=== PATIENT | male | born 1955 | race Caucasian/White ===

== ENCOUNTER → 2021-09-20 09:54 | Outpatient (CLI) | payer MEDICARE, OTHER, SELFPAY ==
[2021-09-20 20:16] LABS: Alanine Aminotransferase 20 IU/L (<50); Albumin 4.8 g/dL (3.5-5.0); Albumin Globulin Ratio 1.8 (1.0-2.8); Alkaline Phosphatase 71 U/L (38-126); Aspartate Aminotransferase 29 IU/L (17-59); BUN Creatinine Ratio 22.5 (6-22); Bilirubin Total 0.8 mg/dL (0.2-1.3); Blood Urea Nitrogen 20 mg/dL (9-20); Calcium 9.9 mg/dL (8.4-10.2); Carbon Dioxide 29 mmol/L (22-32); Chloride 105 mmol/L (98-107); Cholesterol 239 mg/dL (140-199); Estimated Glomerular Filt Rate > 60.0 mL/min (>60); Globulin 2.7 g/dL (1.7-4.1); Glucose 99 mg/dL (80-110); HDL Cholesterol 52 mg/dL (40-60); HEMOLYSIS 32 (0-50); LDL Cholesterol Calculated 175 mg/dL (<100); Potassium 4.5 mmol/L (3.4-5.1); Sodium 139 mmol/L (137-145); Total Protein 7.5 g/dL (6.3-8.2); Triglycerides 62 mg/dL (35-150)
[2021-09-20 20:27] LABS: Hemoglobin A1C% w Est Avg Glu 5.4 % (4.0-6.0)
[2021-09-20 20:32] LABS: Add Manual Diff / Slide Review NO; Basophils Absolute Auto 0 /uL (0-100); Basophils Percent Auto 0.6 % (0-2); Eosinophils Absolute Auto 100 /uL (0-450); Eosinophils Percent Auto 1.5 % (2-4); Hematocrit 46.2 % (41-53); Hemoglobin 15.4 g/dL (13.5-17.5); Lymphocytes Absolute Auto 1000 /uL (1100-4500); Mean Corpuscular HGB Conc 33.4 % (30-36); Mean Corpuscular Hemoglobin 31.4 PG (26-34); Monocytes Absolute Auto 400 /uL (0-900); Monocytes Percent Auto 7.6 % (3-14); Neutrophils Absolute Auto 3900 /uL (1500-7000); Neutrophils Percent Auto 72.3 % (50-75); Platelet Count 119 X10^3/uL (150-400); Red Blood Cell Count 4.92 X10^6/uL (4.5-5.9); White Blood Cell Count 5.5 X10^3/uL (4.5-11.0)
[2021-09-20 20:46] LABS: Prostate Specific Antigen 2.34 ng/mL (0.10-4.00)
[2021-09-20 21:06] LABS: Vitamin B12 848 pg/mL (239-931)
== END ==
PROVIDERS: Family Provider Family Medicine; PCP Family Medicine; Visit Provider Physician Assistant
DX: B18.2 Chronic viral hepatitis C (principal); Z12.5 Encounter for screening for malignant neoplasm of prostate; Z13.220 Encounter for screening for lipoid disorders; G62.9 Polyneuropathy, unspecified; R03.0 Elevated blood-pressure reading, without diagnosis of hypertension
CPT/HCPCS: 80053; 80061; 82607; 83036; 84153; 85025; G0103

== ENCOUNTER → 2021-11-02 13:56 | Outpatient (CLI) | payer MEDICARE, OTHER, SELFPAY ==
--- NOTE | 2021-11-02 13:58 | DI.US.S_ITS ---
PROCEDURE: US ABDOMEN LIMITED INDICATIONS: hx with hep C treated, fibrosis TECHNIQUE: Real-time focused scanning was performed of the abdomen, with image documentation. COMPARISON: None. FINDINGS: The liver demonstrates normal size. The liver demonstrates a coarsened echotexture. No focal nodules are seen on this study. The main portal vein demonstrates normal size and demonstrates normal appearing, hepatopetal flow. IMPRESSION: Coarsened liver echotexture, without focal nodules seen on this study. Dictated by: Osmin Montes M.D. on 11/02/2021 at 13:36 Approved by: Osmin Montes M.D. on 11/02/2021 at 13:37
== END ==
PROVIDERS: Family Provider Family Medicine; PCP Physician Assistant; Referring Provider Physician Assistant; Visit Provider Physician Assistant
DX: B18.2 Chronic viral hepatitis C (principal)
CPT/HCPCS: 76705

== ENCOUNTER → 2022-03-26 13:04 | Outpatient (CLI) | payer MEDICARE, OTHER, SELFPAY ==
[2022-03-26 19:47] LABS: Add Manual Diff / Slide Review NO; Basophils Absolute Auto 0 /uL (0-100); Basophils Percent Auto 0.4 % (0-2); Eosinophils Absolute Auto 100 /uL (0-450); Eosinophils Percent Auto 1.1 % (2-4); Hematocrit 42.3 % (41-53); Hemoglobin 14.3 g/dL (13.5-17.5); Lymphocytes Absolute Auto 1400 /uL (1100-4500); Lymphocytes Percent Auto 22.2 % (25-40); Mean Corpuscular HGB Conc 33.9 % (30-36); Mean Corpuscular Hemoglobin 31.5 PG (26-34); Mean Corpuscular Volume 92.9 fL (80-100); Monocytes Absolute Auto 500 /uL (0-900); Monocytes Percent Auto 8.2 % (3-14); Neutrophils Absolute Auto 4200 /uL (1500-7000); Neutrophils Percent Auto 68.1 % (50-75); Platelet Count 117 X10^3/uL (150-400); Red Blood Cell Count 4.56 X10^6/uL (4.5-5.9); Red Cell Distribution Width 14.1 % (11.6-14.8); White Blood Cell Count 6.2 X10^3/uL (4.5-11.0)
[2022-03-26 20:58] LABS: HIV 1 & 2 Ab/Ag 4th Gen Combo NEGATIVE (NEGATIVE)
== END ==
PROVIDERS: Family Provider Family Medicine; PCP Physician Assistant; Visit Provider Physician Assistant
DX: R19.8 Other specified symptoms and signs involving the digestive system and abdomen (principal); D69.6 Thrombocytopenia, unspecified
CPT/HCPCS: 85025; 87389

== ENCOUNTER → 2023-01-01 09:53 | Outpatient (CLI) | payer MEDICARE, OTHER, SELFPAY ==
[2023-01-01 19:48] LABS: Add Manual Diff / Slide Review NO; Basophils Absolute Auto 0 /uL (0-100); Basophils Percent Auto 0.1 % (0-2); Eosinophils Absolute Auto 100 /uL (0-450); Eosinophils Percent Auto 1.7 % (2-4); Hemoglobin 14.5 g/dL (13.5-17.5); Lymphocytes Absolute Auto 900 /uL (1100-4500); Lymphocytes Percent Auto 22.2 % (25-40); Mean Corpuscular HGB Conc 33.8 % (30-36); Mean Corpuscular Hemoglobin 31.3 PG (26-34); Mean Corpuscular Volume 92.5 fL (80-100); Monocytes Absolute Auto 300 /uL (0-900); Monocytes Percent Auto 7.3 % (3-14); Neutrophils Absolute Auto 2700 /uL (1500-7000); Neutrophils Percent Auto 68.7 % (50-75); Platelet Count 87 X10^3/uL (150-400); Red Blood Cell Count 4.65 X10^6/uL (4.5-5.9); Red Cell Distribution Width 15.1 % (11.6-14.8)
[2023-01-01 20:01] LABS: Alanine Aminotransferase 27 IU/L (<50); Albumin 4.2 g/dL (3.5-5.0); Albumin Globulin Ratio 1.7 (1.0-2.8); Alkaline Phosphatase 71 U/L (38-126); Aspartate Aminotransferase 32 IU/L (17-59); BUN Creatinine Ratio 18.7 (6-22); Bilirubin Total 0.7 mg/dL (0.2-1.3); Blood Urea Nitrogen 17 mg/dL (9-20); Calcium 9.4 mg/dL (8.4-10.2); Carbon Dioxide 26 mmol/L (22-32); Chloride 106 mmol/L (98-107); Cholesterol 170 mg/dL (140-199); Estimated Glomerular Filt Rate > 60 mL/min (>60); Globulin 2.5 g/dL (1.7-4.1); Glucose 100 mg/dL (80-110); HDL Cholesterol 56 mg/dL (40-60); HEMOLYSIS < 15 (0-50); LDL Cholesterol Calculated 104 mg/dL (<100); Potassium 4.3 mmol/L (3.4-5.1); Sodium 140 mmol/L (137-145); Total Protein 6.7 g/dL (6.3-8.2); Triglycerides 48 mg/dL (35-150)
[2023-01-01 20:27] LABS: Prostate Specific Antigen Scrn 1.79 ng/mL (0.1-4.0)
[2023-01-02 21:40] LABS: x Labcorp Estim. Avg Glu (eAG) 108 mg/dL (.); x Labcorp Hemoglobin A1c 5.4 % (4.8-5.6)
== END ==
PROVIDERS: Family Provider Family Medicine; PCP Physician Assistant; Visit Provider Physician Assistant
DX: B18.2 Chronic viral hepatitis C (principal); E78.5 Hyperlipidemia, unspecified; Z12.5 Encounter for screening for malignant neoplasm of prostate; D69.6 Thrombocytopenia, unspecified
CPT/HCPCS: 80053; 80061; 83036; 85025; G0103

== ENCOUNTER → 2023-02-05 15:20 | Outpatient (CLI) | payer MEDICARE, OTHER, SELFPAY ==
--- NOTE | 2023-02-05 15:22 | DI.US.S_ITS ---
PROCEDURE: US ABDOMEN LIMITED INDICATIONS: THROMBOCYTOPENIA; AAA SCREEN TECHNIQUE: Real time scanning was performed of the aorta and iliac arteries, with image documentation. COMPARISON: [facility], , US ABDOMEN LIMITED, 11/02/2021, 14:15. FINDINGS: Aorta: Proximal aorta is not visualized due to bowel gas. Mid-aorta measures 1.6 cm. Distal aortic diameter is 1.6 cm. Iliac arteries: Right common iliac artery measures 0.9 cm. Left common iliac artery measures 1.0 cm. The spleen measures 15.2 cm in length. IMPRESSION: 1. No ectasia or aneurysm of the abdominal aorta or iliac arteries where visualized. 2. Splenomegaly. Dictated by: Guillermina Pink M.D. on 02/05/2023 at 17:11 Approved by: Guillermina Pink M.D. on 02/05/2023 at 17:12
== END ==
PROVIDERS: Family Provider Family Medicine; PCP Physician Assistant; Referring Provider Physician Assistant; Visit Provider Physician Assistant
DX: Z13.6 Encounter for screening for cardiovascular disorders (principal); D69.6 Thrombocytopenia, unspecified; R16.1 Splenomegaly, not elsewhere classified; E78.5 Hyperlipidemia, unspecified; Z87.891 Personal history of nicotine dependence; Z82.49 Family history of ischemic heart disease and other diseases of the circulatory system
CPT/HCPCS: 76705

== ENCOUNTER → 2023-04-21 10:31 | Outpatient (CLI) | payer MEDICARE, OTHER, SELFPAY ==
[2023-04-21 19:50] LABS: Add Manual Diff / Slide Review NO; Basophils Absolute Auto 0 /uL (0-100); Basophils Percent Auto 0.4 % (0-2); Eosinophils Absolute Auto 100 /uL (0-450); Eosinophils Percent Auto 1.1 % (2-4); Hematocrit 45.1 % (41-53); Hemoglobin 15.4 g/dL (13.5-17.5); Lymphocytes Absolute Auto 1200 /uL (1100-4500); Lymphocytes Percent Auto 20.8 % (25-40); Mean Corpuscular HGB Conc 34.2 % (30-36); Mean Corpuscular Hemoglobin 31.5 PG (26-34); Mean Corpuscular Volume 92.3 fL (80-100); Monocytes Absolute Auto 400 /uL (0-900); Monocytes Percent Auto 6.9 % (3-14); Neutrophils Absolute Auto 4200 /uL (1500-7000); Neutrophils Percent Auto 70.8 % (50-75); Platelet Count 97 X10^3/uL (150-400); Red Blood Cell Count 4.88 X10^6/uL (4.5-5.9); Red Cell Distribution Width 14.4 % (11.6-14.8); White Blood Cell Count 5.9 X10^3/uL (4.5-11.0)
[2023-04-21 19:59] LABS: Alanine Aminotransferase 29 IU/L (<50); Albumin 4.3 g/dL (3.5-5.0); Albumin Globulin Ratio 1.6 (1.0-2.8); Alkaline Phosphatase 69 U/L (38-126); Aspartate Aminotransferase 31 IU/L (17-59); BUN Creatinine Ratio 17.8 (6-22); Blood Urea Nitrogen 16 mg/dL (9-20); Carbon Dioxide 27 mmol/L (22-32); Chloride 104 mmol/L (98-107); Cholesterol 184 mg/dL (140-199); Estimated Glomerular Filt Rate > 60 mL/min (>60); Globulin 2.7 g/dL (1.7-4.1); Glucose 95 mg/dL (80-110); HDL Cholesterol 53 mg/dL (40-60); HEMOLYSIS 17 (0-50); LDL Cholesterol Calculated 117 mg/dL (<100); Potassium 4.3 mmol/L (3.4-5.1); Sodium 138 mmol/L (137-145); Triglycerides 70 mg/dL (35-150)
[2023-04-21 20:23] LABS: Prostate Specific Antigen Scrn 1.89 ng/mL (0.1-4.0); TSH w/ Reflex to FT4 3.43 uIU/mL (0.47-4.68)
== END ==
PROVIDERS: Family Provider Family Medicine; PCP Physician Assistant Medical; Visit Provider Physician Assistant Medical
DX: B18.2 Chronic viral hepatitis C (principal); E78.5 Hyperlipidemia, unspecified; F41.9 Anxiety disorder, unspecified; Z12.5 Encounter for screening for malignant neoplasm of prostate; D61.818 Other pancytopenia; D69.6 Thrombocytopenia, unspecified
CPT/HCPCS: 80053; 80061; 84443; 85025; G0103

== ENCOUNTER → 2024-03-16 15:28 | Outpatient (CLI) | payer MEDICARE, OTHER, SELFPAY | PROVIDERS: Family Provider Family Medicine; PCP Physician Assistant Medical; Visit Provider Physician Assistant Medical | DX: R35.0 Frequency of micturition (principal) | CPT/HCPCS: 87086 ==

== ENCOUNTER → 2024-03-18 14:30 | Outpatient (CLI) | payer MEDICARE, OTHER, SELFPAY ==
[2024-03-24 08:43] LABS: Fecal Immunochemical Test Positive (Negative)
== END ==
PROVIDERS: Family Provider Family Medicine; PCP Physician Assistant Medical; Visit Provider Physician Assistant Medical
DX: Z12.5 Encounter for screening for malignant neoplasm of prostate (principal); D61.818 Other pancytopenia; E78.5 Hyperlipidemia, unspecified; D69.6 Thrombocytopenia, unspecified
CPT/HCPCS: 82274

== ENCOUNTER → 2024-03-30 12:49 | Outpatient (CLI) | payer MEDICARE, OTHER, SELFPAY ==
--- NOTE | 2024-03-30 12:50 | DI.US.S_ITS ---
PROCEDURE: US ABDOMEN COMPLETE INDICATIONS: PAIN TECHNIQUE: Real-time scanning was performed of the abdominal and retroperitoneal organs, with image documentation. COMPARISON: [facility], US, US ABDOMEN LIMITED, 02/05/2023, 15:36. [facility], US, US ABDOMEN LIMITED, 11/02/2021, 14:15. FINDINGS: Liver: Liver is normal in size but heterogeneous in echotexture. Mildly increased echogenicity. No sonographic evidence of a focal lesion. Gallbladder: Gallbladder wall thickness at 7 mm. Trace pericholecystic edema. No gallstones. Negative sonographic Quinones sign. Biliary ducts: Intrahepatic bile ducts are non-dilated. Extrahepatic bile duct caliber measures 5 mm. Normal is 6-7 mm or less in diameter, or 10 mm or less post-cholecystectomy. Pancreas: Visualized portions of the pancreas are sonographically normal. Spleen: Spleen is enlarged at 14.5 cm with a total volume of 110 cc. Kidneys: Kidneys are normal in size and echotexture. Right kidney measures 9.8 cm long; left kidney measures 11.4 cm long. No hydronephrosis or nephrolithiasis. No solid masses. 2.5 x 1.8 x 1.5 cm left simple cyst at the middle cortex. Aorta: Visualized aorta is normal in caliber at less than 3 cm. Iliacs: Not well identified due to overlying bowel gas. IVC: Intrahepatic inferior vena cava is patent. Miscellaneous: No free abdominal fluid. IMPRESSION: 1. Hepatic steatosis versus underlying hepatocellular disease. 2. Gallbladder wall thickening with trace pericholecystic edema. If there is suspicion for acute cholecystitis, consider a HIDA scan. 3. Nonspecific splenomegaly. Dictated by: Bernabe Bernstein M.D. on 03/30/2024 at 16:53 Approved by: Bernabe Bernstein M.D. on 03/30/2024 at 16:59
== END ==
LOC: US 12:49
PROVIDERS: Family Provider Family Medicine; PCP Physician Assistant Medical; Referring Provider Physician Assistant Medical; Visit Provider Physician Assistant Medical
DX: D61.818 Other pancytopenia (principal); E78.5 Hyperlipidemia, unspecified; R16.1 Splenomegaly, not elsewhere classified
CPT/HCPCS: 76700

== ENCOUNTER → 2024-03-31 09:50 | Outpatient (CLI) | payer MEDICARE, OTHER, SELFPAY ==
[2024-03-31 19:23] LABS: Hematocrit 44.3 % (41-53); Hemoglobin 14.9 g/dL (13.5-17.5); Mean Corpuscular HGB Conc 33.7 % (30-36); Mean Corpuscular Hemoglobin 32.1 PG (26-34); Mean Corpuscular Volume 95.3 fL (80-100); Platelet Count 100 X10^3/uL (150-400); Red Blood Cell Count 4.65 X10^6/uL (4.5-5.9); White Blood Cell Count 4.5 X10^3/uL (4.5-11.0)
[2024-03-31 19:34] LABS: Alanine Aminotransferase 31 IU/L (<50); Albumin 4.1 g/dL (3.5-5.0); Albumin Globulin Ratio 1.6 (1.0-2.8); Alkaline Phosphatase 61 U/L (38-126); Amylase 116 U/L (30-110); Aspartate Aminotransferase 36 IU/L (17-59); BUN Creatinine Ratio 23.2 (6-22); Bilirubin Total 0.9 mg/dL (0.2-1.3); Blood Urea Nitrogen 22 mg/dL (9-20); Carbon Dioxide 27 mmol/L (22-32); Chloride 107 mmol/L (98-107); Estimated Glomerular Filt Rate > 60 mL/min (>60); Globulin 2.6 g/dL (1.7-4.1); Glucose 99 mg/dL (80-110); HEMOLYSIS < 15 (0-50); Lipase 454 U/L (23-300); Potassium 4.5 mmol/L (3.4-5.1); Sodium 139 mmol/L (137-145); Total Protein 6.7 g/dL (6.3-8.2)
[2024-04-02 11:11] LABS: Interpretation Negative (Negative)
== END ==
PROVIDERS: Family Provider Family Medicine; PCP Physician Assistant Medical; Visit Provider Physician Assistant Medical
DX: K29.70 Gastritis, unspecified, without bleeding (principal); R35.0 Frequency of micturition; R10.9 Unspecified abdominal pain; D61.818 Other pancytopenia; E78.5 Hyperlipidemia, unspecified; R93.2 Abnormal findings on diagnostic imaging of liver and biliary tract
CPT/HCPCS: 80053; 82150; 83013; 83690; 84153; 85027

== ENCOUNTER → 2024-04-21 07:45 | Outpatient (CLI) | payer MEDICARE, OTHER, SELFPAY ==
--- NOTE | 2024-04-21 07:55 | DI.ECHO.S_ITS ---
[facility] : : [id number] : : [place] : : [id number] : : Phone: [phone] Echocardiogram Report + + :Name: SHAY CORLEY Study Date: 04/21/2024 Height: 72 in : :[facility] ReadingLocation: Weight: 171 lb : : Gender: Male BSA: 2.0 m2 : :: 1955 Age: 68 yrs BP: 153/80 mmHg: :Reason For Study: Murmur : :Ordering Physician: OTIS, : :JORDAN Performed By: Vonda Easton : :Referring: JORDAN BERG : + + Interpretation Summary 1. The left ventricular contractility is normal. Estimate ejection fraction is greater than 55% with no segmental wall motion abnormalities. No LVH. Unable to comment on diastolic function. 2. The right ventricular contractility is normal. 3. All cardiac chambers are of normal size. 4. No significant valvular abnormalities. 5. No obvious intracardiac shunts. 6. No obvious intracardiac masses nor thrombi. 7. No hemodynamically significant pericardial effusion. Conclusion: Normal biventricular systolic function with no significant valvular abnormalities. Procedure: A two-dimensional transthoracic echocardiogram with color flow and Doppler was performed in limited views only to assess for murmur. The study quality was technically adequate. There is no prior echocardiogram noted for this patient. The patient was in sinus rhythm with heart rates between 48- 54 bpm during the exam. The patient had occasional PACs during the exam. Left Ventricle: The left ventricle is normal in size and wall thickness. Left ventricular ejection fraction is estimated to be 60 +/- 5%. Atria: There is no Doppler evidence for an interatrial shunt. Mitral Valve: The mitral valve is normal in structure and function. There is trace mitral regurgitation. Aortic Valve: The aortic valve is trileaflet. The aortic valve opens well. The aortic valve is mildly calcified. There is no aortic valve stenosis. There is no aortic regurgitation. Tricuspid Valve: The tricuspid valve leaflets are thin and pliable. There is a trace or physiologic amount of tricuspid regurgitation. Pulmonic Valve: The pulmonic valve leaflets are thin and pliable; valve motion is normal. There is mild pulmonic regurgitation. Pericardium/ Pleura There is no pericardial effusion. There is no pleural effusion. MMode/2D Measurements & Calculations LVIDd: 5.4 cm LVIDs: 3.0 cm FS: 43.7 % IVSd: 0.96 cm LVPWd: 0.76 cm LV graves. diameter/BSA (cm/m^2): 2.7 LV sys. diameter/BSA (cm/m^2): 1.5 Doppler Measurements & Calculations Ao V2 max: 161.2 cm/sec TR max nino: 235.2 cm/sec Ao V2 mean: 97.3 cm/sec TR max P.3 mmHg Ao max P.4 mmHg PA pr(Accel): 10.5 mmHg Ao mean P.5 mmHg Ao V2 VTI: 35.6 cm Reading Physician:
--- NOTE | 2024-04-21 07:55 | DI.CT.S_ITS ---
PROCEDURE: CT ABDOMEN PELVIS W CON INDICATIONS: abdominal pain r/o pancreatitis TECHNIQUE: After the administration of intravenous contrast, axial sections acquired from the lung bases to the pubic symphysis. Coronal and sagittal reformats were performed. For radiation dose reduction, the following was used: automated exposure control, adjustment of mA and/or kV according to patient size. COMPARISON: None. FINDINGS: Image quality: Diagnostic. Lower Chest: No significant findings. ABDOMEN: Liver: Liver demonstrates a mildly nodular surface contour with slightly enlarged caudate lobe suggestive of cirrhosis. No focal hepatic lesion. Gallbladder: Diffuse gallbladder wall thickening and pericholecystic fluid with associated inflammatory changes. No definite calcified gallstone. Biliary ducts: No biliary dilation. Pancreas: No focal pancreatic mass. No pancreatic duct dilatation or inflammatory changes. Spleen: Spleen is mildly enlarged. No focal mass lesion. Adrenal Glands: No adrenal nodules. Kidneys and Ureters: No hydronephrosis. No solid mass. No complex renal cystic lesion which requires follow up. Scattered small hypodense lesions throughout both kidneys most likely cysts and too small to characterize. Stomach and Bowel: The small and large bowel appear normal in caliber without evidence of bowel obstruction. Peritoneum: Trace amount of free fluid within the pelvis (series 2, image 66). No abdominal or pelvic fluid collections to suggest abscess. No evidence of pneumoperitoneum. Ventral Wall: Tiny umbilical hernia containing fat. Abdominal Nodes: No retroperitoneal or mesenteric adenopathy by size criteria. Vessels: Aorta and inferior vena cava are normal in size. Numerous collaterals within the splenic hilum with a splenorenal shunt (series 2, image 28). PELVIS: Pelvic Organs: Mild prostatomegaly containing coarse calcifications. Bladder: No bladder wall thickening, accounting for underdistention. Pelvic Nodes: No enlarged lymph nodes. Miscellaneous: No inguinal hernias are seen. Bones: No aggressive osseous abnormality. IMPRESSION: 1. Diffuse gallbladder wall thickening with associated inflammatory changes and probable pericholecystic fluid without calcified gallstone. Overall findings are suspicious for cholecystitis although other possibilities such as underlying liver disease or hypoproteinemia as etiologies for above described findings are not excluded. Correlation with right upper quadrant sonogram is recommended. 2. Morphologic changes of the liver compatible with cirrhosis. Evidence of secondary portal hypertension including mild splenomegaly and presence of a splenorenal shunt. Dictated by: Dustin Hamlin M.D. on 04/21/2024 at 11:50 Approved by: Dustin Hamlin M.D. on 04/21/2024 at 12:48
--- NOTE | 2024-04-21 07:55 | DI.NM.S_ITS ---
PROCEDURE: NM HIDA WITH CCK PHARMACEUTICAL: 203.5 mCi Tc-99m mebrofenin IV; 1.5 mcg CCK IV. INDICATIONS: r/o biliary dyskinesia TECHNIQUE: Following intravenous administration of Tc-99m mebrofenin, sequential anterior abdominal images were obtained. To evaluate the contractile response of the gallbladder in response to Cholecystokinin (CCK), sincalide (0.02 ?g/kg) was administered by slow intravenous infusion approximately 60 minutes after the administration of the radiopharmaceutical. Sequential imaging was continued for 30 minutes after the start of CCK infusion. Gallbladder ejection fraction was calculated. COMPARISON: None. FINDINGS: Biliary scan: There is normal tracer uptake and excretion by the liver. There is normal visualization of the intrahepatic ducts, common bile duct, and gallbladder. There is normal tracer transit into the duodenum. CCK stimulation: There is normal contractile response of the gallbladder to CCK infusion. The calculated gallbladder ejection fraction is 81 percent ; normal values are above 35%. It has been shown that any patient abdominal pain after CCK administration is related to the rate of CCK injection, rather than to any underlying gallbladder disease (Clinical Nuclear Medicine 2012; 37: 63-70. Journal of Nuclear Medicine 2014; 55: 1-9). IMPRESSION: Normal HIDA scan. No findings to suggest biliary dyskinesia. Dictated by: Jeffrey Rowland M.D. on 04/21/2024 at 10:48 Approved by: Jefrfey Rowland M.D. on 04/21/2024 at 10:49
== END ==
LOC: NUCM 07:50
PROVIDERS: Family Provider Family Medicine; PCP Physician Assistant Medical; Referring Provider Surgery; Visit Provider Surgery
DX: R01.1 Cardiac murmur, unspecified (principal); I37.1 Nonrheumatic pulmonary valve insufficiency; R16.1 Splenomegaly, not elsewhere classified; R10.9 Unspecified abdominal pain
CPT/HCPCS: 74177; 78227; 93307; A9537; J2805; Q9967

== ENCOUNTER → 2024-11-04 11:15 | Outpatient (CLI) | payer MEDICARE, OTHER, SELFPAY ==
[2024-11-04 12:01] LABS: Add Manual Diff / Slide Review NO; Basophils Absolute Auto 0 /uL (0-100); Eosinophils Absolute Auto 100 /uL (0-450); Eosinophils Percent Auto 2.3 % (2-4); Hematocrit 40.7 % (41-53); Lymphocytes Absolute Auto 900 /uL (1100-4500); Lymphocytes Percent Auto 18.7 % (25-40); Mean Corpuscular HGB Conc 34.3 % (30-36); Mean Corpuscular Hemoglobin 31.5 PG (26-34); Mean Corpuscular Volume 91.8 fL (80-100); Monocytes Absolute Auto 300 /uL (0-900); Monocytes Percent Auto 7.4 % (3-14); Neutrophils Absolute Auto 3300 /uL (1500-7000); Neutrophils Percent Auto 70.6 % (50-75); Platelet Count 102 X10^3/uL (150-400); Red Blood Cell Count 4.43 X10^6/uL (4.5-5.9); Red Cell Distribution Width 15.1 % (11.6-14.8); White Blood Cell Count 4.7 X10^3/uL (4.5-11.0)
[2024-11-04 12:19] LABS: INR 1.2 (0.9-1.3); Prothrombin Time 14.1 SECONDS (9.4-12.5)
[2024-11-04 12:30] LABS: Alanine Aminotransferase 44 IU/L (<50); Albumin 4.3 g/dL (3.5-5.0); Albumin Globulin Ratio 1.7 (1.0-2.8); Alkaline Phosphatase 89 U/L (38-126); Aspartate Aminotransferase 42 IU/L (17-59); BUN Creatinine Ratio 24.1 (6-22); Bilirubin Total 0.9 mg/dL (0.2-1.3); Blood Urea Nitrogen 19 mg/dL (9-20); Calcium 9.7 mg/dL (8.4-10.2); Carbon Dioxide 22 mmol/L (22-32); Chloride 108 mmol/L (98-107); Estimated Glomerular Filt Rate > 60 mL/min (>60); Globulin 2.5 g/dL (1.7-4.1); Glucose 119 mg/dL (80-110); HEMOLYSIS 26 (0-50); Lipase 347 U/L (23-300); Potassium 4.1 mmol/L (3.4-5.1); Sodium 138 mmol/L (137-145); Total Protein 6.8 g/dL (6.3-8.2)
== END ==
PROVIDERS: Family Provider Family Medicine; PCP Physician Assistant Medical; Referring Provider Internal Medicine Gastroenterology; Visit Provider Internal Medicine Gastroenterology
DX: R10.9 Unspecified abdominal pain (principal); R74.8 Abnormal levels of other serum enzymes; K74.69 Other cirrhosis of liver; B19.20 Unspecified viral hepatitis C without hepatic coma; I85.10 Secondary esophageal varices without bleeding; K76.6 Portal hypertension; Z68.23 Body mass index [BMI] 23.0-23.9, adult; R19.5 Other fecal abnormalities; K74.60 Unspecified cirrhosis of liver; I85.00 Esophageal varices without bleeding
CPT/HCPCS: 36415; 80053; 83690; 85025; 85610; 99215

== ENCOUNTER → 2024-11-17 14:58 | Outpatient (CLI) | payer MEDICARE, OTHER, SELFPAY ==
--- NOTE | 2024-11-17 15:00 | DI.US.S_ITS ---
PROCEDURE: US ABDOMEN LIMITED INDICATIONS: evaluate liver TECHNIQUE: Real-time scanning was performed of the abdominal and retroperitoneal organs, with image documentation. COMPARISON: [facility], US, US ABDOMEN COMPLETE, 03/30/2024, 13:12. FINDINGS: Liver: Nonspecific heterogenous hepatic echotexture without focal mass lesion. Increased generalized echogenicity reflects fatty infiltration. No intrahepatic biliary ductal dilatation. Gallbladder: No gallstones. Gallbladder wall thickening measures up to 5.2 cm Biliary ducts: Intrahepatic bile ducts are non-dilated. Extrahepatic bile duct caliber measures 5.8 mm. Normal is 6-7 mm or less in diameter, or 10 mm or less post-cholecystectomy. Pancreas: Visualized portions of the pancreas are sonographically normal. Miscellaneous: No free abdominal fluid. IMPRESSION: Nonspecific heterogenous hepatic echotexture may reflect hepatic medical disease. No focal mass lesion or biliary obstruction. Approved by: Lupillo Ashley M.D. on 11/18/2024 at 12:54
[2024-11-19 14:36] LABS: Pancreatic Elastase, Fecal >800 (>200)
== END ==
PROVIDERS: Family Provider Family Medicine; PCP Physician Assistant Medical; Referring Provider Internal Medicine Gastroenterology; Visit Provider Internal Medicine Gastroenterology
DX: R10.9 Unspecified abdominal pain (principal); R74.8 Abnormal levels of other serum enzymes
CPT/HCPCS: 76705; 82656

== ENCOUNTER 2024-11-24 10:52 | Day surgery (SDC) | payer MEDICARE, OTHER, SELFPAY ==
[2024-11-24 11:22] VITALS: BP 158/81; PULSE 58; RESP 18; TEMP 36; O2SAT 99
[2024-11-24] MEDS: LACTATED RINGERS 1,000 ML 42 ML IV (11:27)
--- NOTE | 2024-11-24 11:33 | PM.PREOP ---
Pre-operative Note COVID-19 COVID-19 status: Not tested Interval Note History & Physical reviewed/Exam performed by Physician: Yes Changes to H&P: No ASA Class (for procedural sedation): III
--- NOTE | 2024-11-24 11:34 | PM.OP.EC ---
Operative Date/Time/Diagnoses Date of procedure: 11/24/24 Time of procedure: 12:35 Pre-op diagnosis: See indication and findings Post-op diagnosis: same Procedure & Clinicians Study performed: EGD and colonoscopy Same procedure as scheduled: Yes Indications: Cirrhosis with history of possible esophageal varices need for assessment and potential banding. In addition, need for colorectal cancer screening Surgeon: Ivan Hernandez Procedure Notes Procedure in detail: After informed consent was obtained the patient was placed in left lateral decubitus position. The video upper scope was placed into the oropharynx and with the patient's help swallowed into the esophagus. The esophagus stomach and duodenal were carefully examined. On withdrawal, retroflexed the GE junction was performed. The scope was removed. The patient tolerated procedure well. The patient was then turned and the colonoscope substituted. This was placed the rectum slowly advanced cecum. On slow withdrawal mucosa was carefully examined. The scope was removed. The patient tolerated procedure well. Blood loss none Complications none Sedation mac Findings EGD 1. For columns of varices present from the GE junction to 28 cm. Five bands were placed. No complications noted 2. No evidence for gastric varices 3. Gastropathy of portal hypertension throughout 4. Normal duodenal bulb and sweep Colonoscopy 1. Diffuse colopathy of hypertension 2. Large rectal varices. 3. Otherwise negative colonoscopy to cecum Patient should have follow-up EGD with banding within 3-4 weeks.
[2024-11-24 12:37] VITALS: BP 113/74; PULSE 56; RESP 19; TEMP 36.6; O2SAT 94
[2024-11-24 13:19] VITALS: BP 130/69; PULSE 57; RESP 15; TEMP 36.4; O2SAT 97
== END 2024-11-24 13:29 | disposition home or self-care (01) ==
PROVIDERS: Family Provider Family Medicine; PCP Physician Assistant Medical; Referring Provider Internal Medicine Gastroenterology; Visit Provider Internal Medicine Gastroenterology
PROC: 0DJ08ZZ Inspection of Upper Intestinal Tract, Via Natural or Artificial Opening Endoscopic (ICD-10-PCS; CPT 43244; principal; 2024-11-24 13:00)
PROC: 0DJD8ZZ Inspection of Lower Intestinal Tract, Via Natural or Artificial Opening Endoscopic (ICD-10-PCS; CPT 45378; 2024-11-24 13:00)
DX: Z12.11 Encounter for screening for malignant neoplasm of colon (principal); Z87.891 Personal history of nicotine dependence; K74.60 Unspecified cirrhosis of liver; K76.6 Portal hypertension; I85.10 Secondary esophageal varices without bleeding; Z86.19 Personal history of other infectious and parasitic diseases; R74.8 Abnormal levels of other serum enzymes; R19.5 Other fecal abnormalities; K31.89 Other diseases of stomach and duodenum; I86.8 Varicose veins of other specified sites
CPT/HCPCS: 43244; G0121; J2704

== ENCOUNTER → 2024-12-30 09:29 | Outpatient (CLI) | payer MEDICARE, OTHER, SELFPAY ==
[2024-12-30 19:18] LABS: Alanine Aminotransferase 28 IU/L (<50); Albumin Globulin Ratio 1.6 (1.0-2.8); Alkaline Phosphatase 87 U/L (38-126); Aspartate Aminotransferase 38 IU/L (17-59); BUN Creatinine Ratio 20.5 (6-22); Bilirubin Total 1.1 mg/dL (0.2-1.3); Blood Urea Nitrogen 18 mg/dL (9-20); Calcium 9.5 mg/dL (8.4-10.2); Carbon Dioxide 28 mmol/L (22-32); Chloride 105 mmol/L (98-107); Cholesterol 166 mg/dL (140-199); Estimated Glomerular Filt Rate > 60 mL/min (>60); Globulin 2.5 g/dL (1.7-4.1); Glucose 98 mg/dL (70-99); HDL Cholesterol 56 mg/dL (40-60); HEMOLYSIS < 15 (0-50); LDL Cholesterol Calculated 99 mg/dL (<100); Potassium 4.3 mmol/L (3.4-5.1); Sodium 139 mmol/L (137-145); Total Protein 6.5 g/dL (6.3-8.2); Triglycerides 56 mg/dL (35-150)
== END ==
PROVIDERS: Family Provider Family Medicine; PCP Physician Assistant Medical; Visit Provider Physician Assistant Medical
DX: E78.5 Hyperlipidemia, unspecified (principal)
CPT/HCPCS: 80053; 80061

== ENCOUNTER 2025-01-10 11:01 | Day surgery (SDC) | payer MEDICARE, OTHER, SELFPAY ==
[2025-01-10] VITALS (7 sets, daily range): BP systolic 102–157; BP diastolic 61–84; PULSE 50–59; RESP 13–22; TEMP 36.1–36.7; O2SAT 90–99
[2025-01-10] MEDS: LACTATED RINGERS 1,000 ML 42 ML IV (11:37)
--- NOTE | 2025-01-10 11:49 | PM.HP.IH.1 ---
History of Present Illness History of Present Illness Date Patient Seen: 01/10/25 Chief complaint: EGD Narrative: History of esophageal varices last banded in late November now in for follow-up assessment and possible banding. Patient has also had colonoscopy performed for positive fit test which was essentially negative except for large internal hemorrhoids/rectal varices. [facility] Medical History (Updated 01/06/25 @ 09:39 by Shanel Guzman PA-C) Hepatitis C virus infection resolved after antiviral drug therapy Colon cancer screening Substance abuse Depression Anxiety Malaria (~2005) Unspecified viral hepatitis C without hepatic coma Surgical History Anesthesia History of carpal tunnel surgery (~2015) [place] teeth removed History of ear surgery (~1957) Undescended testicle (~1959) Other postprocedural status Family History Father Fall Mother Myeloid leukemia Brother Accidental overdose Grandfather Suicide Social History marital status: household members: spouse lives independently: Yes occupational status: previously employed alcohol intake: former substance use type: former substance user and IV drugs (As a young man, not currently) Meds Home Medications and Allergies Home Medications ?Medication ?Instructions ?Recorded ?Confirmed ?Type omega-3 fatty acids-vitamin E 1 cap PO DAILY 02/05/23 01/06/25 History 1,000 mg capsule atorvastatin 10 mg tablet 10 mg PO DAILY #180 tabs 03/16/24 01/06/25 Rx carvedilol 6.25 mg tablet 6.25 mg PO ONCE 11/04/24 01/10/25 History pantoprazole 40 mg tablet,delayed 40 mg PO DAILY 11/04/24 01/10/25 History release Allergies Allergy/AdvReac Type Severity Reaction Status Date / Time No Known Drug Allergies Allergy Verified 01/10/25 11:21 Exam Vital Signs (past 8 hours): - 01/10/25 11:24 Temperature 96.9 F L Pulse Rate 59 L Respiratory Rate 16 Blood Pressure 157/84 H Pulse Oximetry 99 Oxygen Delivery Method Room Air Oxygen Delivery Method Room Air Narrative Exam Narrative: Oropharynx free of lesion chest clear to auscultation percussion Assessment & Plan Assessment & Plan narrative: History of previous esophageal varices need for reassessment and possible repeat banding. Risks, benefits, alternatives have been explained. Time-Based Coding :: [TOTAL MINUTES] spent with patient and on the chart (including review of chart, obtaining history, exam, reviewing outside data, placing orders, documenting exam and treatment plan, and counseling patient) on [DATE]. [employer] Chief Document charge(s): No
--- NOTE | 2025-01-10 11:53 | PM.OP.EGD ---
Operative Date/Time/Diagnoses Date of procedure: 01/10/25 Time of procedure: 12:14 Pre-op diagnosis: See indication and findings Post-op diagnosis: same Procedure & Clinicians Study performed: EGD with possible banding Same procedure(s) as scheduled: Yes Indications: History of esophageal varices need for reassessment and possible treatment Surgeon: Ivan Hernandez Procedure Notes Procedure in detail: After informed consent was obtained the patient was placed in left lateral decubitus position. The video upper scope was placed into the oropharynx and with the patient's help swallowed into the esophagus. The esophagus stomach and duodenal were carefully examined. On withdrawal, retroflexed view the GE junction was performed. The scope was removed. The patient tolerated procedure well. Blood loss none Complications none Sedation mac Findings One. Esophageal varices from 28 cm to the GE junction at 38 cm. Four columns were seen. Three bands were placed on 3 columns and 1 other band misfired. Good hemostasis was achieved 2. Gastropathy portal hypertension moderate to severe 3. Normal duodenal bulb and sweep Patient will need follow-up EGD in 3-6 weeks. I will arrange for the surgery office to contact him
--- NOTE | 2025-01-10 12:57 | SUR.PHASEII ---
Pt soiled the bed and requesting to shower before discharging to [facility]. Pt showered himself independently in pre-op department. Shower chair in place, nonslip mat placed on floor outside of shower, towels provided. Pt instructed to call this RN if he needs assistance. Pt able to ambulate to bathroom independently without concern.
== END 2025-01-10 13:00 | disposition home or self-care (01) ==
PROVIDERS: Family Provider Family Medicine; PCP Physician Assistant Medical; Referring Provider Internal Medicine Gastroenterology; Visit Provider Internal Medicine Gastroenterology
PROC: 0DJ08ZZ Inspection of Upper Intestinal Tract, Via Natural or Artificial Opening Endoscopic (ICD-10-PCS; CPT 43244; principal; 2025-01-10 12:30)
DX: I85.10 Secondary esophageal varices without bleeding (principal); K76.6 Portal hypertension; K31.89 Other diseases of stomach and duodenum
CPT/HCPCS: 43244; J2704

== ENCOUNTER 2025-01-24 09:43 | Day surgery (SDC) | payer MEDICARE, OTHER, SELFPAY ==
[2025-01-24] VITALS (7 sets, daily range): BP systolic 126–157; BP diastolic 71–89; PULSE 51–59; RESP 12–18; TEMP 36.2–36.6; O2SAT 96–98
--- NOTE | 2025-01-24 11:37 | PM.HP.IH.1 ---
History of Present Illness History of Present Illness Date Patient Seen: 01/24/25 Chief complaint: EGD Narrative: History of cirrhosis with esophageal varices undergoing a banding protocol. [facility] Medical History (Updated 01/06/25 @ 09:39 by Shanel Guzman PA-C) Hepatitis C virus infection resolved after antiviral drug therapy Colon cancer screening Substance abuse Depression Anxiety Malaria (~2005) Unspecified viral hepatitis C without hepatic coma Surgical History Anesthesia History of carpal tunnel surgery (~2015) [place] teeth removed History of ear surgery (~1957) Undescended testicle (~1959) Other postprocedural status Family History Father Fall Mother Myeloid leukemia Brother Accidental overdose Grandfather Suicide Social History marital status: household members: spouse lives independently: Yes occupational status: previously employed Smoking Status: Former smoker alcohol intake: former substance use type: former substance user and IV drugs (As a young man, not currently) Meds Home Medications and Allergies Home Medications ?Medication ?Instructions ?Recorded ?Confirmed ?Type omega-3 fatty acids-vitamin E 1 cap PO DAILY 02/05/23 01/24/25 History 1,000 mg capsule atorvastatin 10 mg tablet 10 mg PO DAILY #180 tabs 03/16/24 01/24/25 Rx carvedilol 6.25 mg tablet 6.25 mg PO ONCE 11/04/24 01/24/25 History pantoprazole 40 mg tablet,delayed 40 mg PO DAILY 11/04/24 01/24/25 History release Allergies Allergy/AdvReac Type Severity Reaction Status Date / Time No Known Drug Allergies Allergy Verified 01/24/25 11:26 Exam Narrative Exam Narrative: Oropharynx free of lesions Chest clear to auscultation percussion Cardiac exam reveals no S3 or murmur Assessment & Plan Assessment & Plan narrative: History of esophageal varices on a banding protocol. Need for follow-up EGD and possible banding. Risks, benefits, alternatives have been explained. Time-Based Coding :: [TOTAL MINUTES] spent with patient and on the chart (including review of chart, obtaining history, exam, reviewing outside data, placing orders, documenting exam and treatment plan, and counseling patient) on [DATE]. 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
--- NOTE | 2025-01-24 11:38 | PM.OP.EGD ---
Operative Date/Time/Diagnoses Date of procedure: 01/24/25 Time of procedure: 12:59 Pre-op diagnosis: dings see indication and findings Post-op diagnosis: same Procedure & Clinicians Study performed: EGD with possible banding Same procedure(s) as scheduled: Yes Indications: History of varices Surgeon: Ivan Hernandez Anesthesia Type: Other Procedure Notes Procedure in detail: After informed consent was obtained the patient was placed in left lateral decubitus position. The video upper scope was placed into the oropharynx and with the patient's help swallowed into the esophagus. The esophagus stomach and duodenal were carefully examined. On withdrawal, retroflexed view the GE junction was performed. The scope was removed. The patient tolerated procedure well. Blood loss none Complications none Sedation mac Findings 1. Esophagus with at least 3 columns of varices. Using the banding kit for bands were deployed. 2. Gastropathy of portal hypertension moderate to severe 3. Negative duodenal bulb and sweep Patient will need to have follow-up EGD in 6-10 weeks for further banding.
[2025-01-24] MEDS: LACTATED RINGERS 1,000 ML 42 ML IV (11:43)
[2025-01-24] MEDS: OXYCODONE IR 5 MG TABLET PO (13:16)
[2025-01-24] MEDS: ACETAMINOPHEN 325 MG TABLET 975 MG PO (13:16)
== END 2025-01-24 13:30 | disposition home or self-care (01) ==
PROVIDERS: Family Provider Family Medicine; PCP Physician Assistant Medical; Referring Provider Internal Medicine Gastroenterology; Visit Provider Internal Medicine Gastroenterology
PROC: 0DJ08ZZ Inspection of Upper Intestinal Tract, Via Natural or Artificial Opening Endoscopic (ICD-10-PCS; CPT 43244; principal; 2025-01-24 11:30)
DX: K76.6 Portal hypertension (principal); K31.89 Other diseases of stomach and duodenum; I85.00 Esophageal varices without bleeding
CPT/HCPCS: 43244; J2704

== ENCOUNTER 2025-04-13 11:12 | Day surgery (SDC) | payer MEDICARE, OTHER, SELFPAY ==
[2025-04-13 12:58] VITALS: BP 152/76; PULSE 55; RESP 16; TEMP 36.3; O2SAT 98
[2025-04-13] MEDS: LACTATED RINGERS 1,000 ML 42 ML IV (13:08)
--- NOTE | 2025-04-13 13:13 | PM.OP.ENDO ---
Operative Date/Time/Diagnoses Date of procedure: 04/13/25 Time of procedure: 14:06 Pre-op diagnosis: See indication and findings Post-op diagnosis: same Procedure & Clinicians Study performed: EGD with banding Same procedure(s) as scheduled: Yes Indications: History of esophageal varices on a variceal ablation program. Surgeon: Ivan Hernandez Anesthesia Type: Other Procedure Notes Procedure in detail: After informed consent was obtained the patient was placed in left lateral decubitus position. The video upper scope was placed into the oropharynx and with the patient's help swallowed into the esophagus. The esophagus stomach and duodenal were carefully examined. On withdrawal, retroflexed view the GE junction was performed. The scope was removed. The patient tolerated procedure well. Complications none Sedation mac Findings 1. Improved esophageal varices probably grade B. scope was removed and banding kit applied. The 3 columns of varices each 1 band placed. 2. Gastropathy or portal hypertension 3. Mild diffuse erythema of the duodenal bulb otherwise negative Patient should have follow-up EGD in 2-3 weeks but he is definitely making good improvement.
[2025-04-13 14:05] VITALS: BP 138/77; PULSE 50; RESP 16; TEMP 36.1; O2SAT 98
[2025-04-13 14:10] VITALS: BP 135/67; PULSE 57; RESP 16; O2SAT 99
[2025-04-13 14:15] VITALS: BP 135/67; PULSE 55; RESP 16; O2SAT 98
[2025-04-13 14:25] VITALS: BP 137/68; PULSE 50; RESP 14; TEMP 36.1; O2SAT 98
--- NOTE | 2025-04-13 14:41 | SUR.PHASEII ---
Pt instructions state to return in 2 to 3 weeks for repeat banding; pt states [place] is leaving the country in [place], called Dr Hernandez who states if pt feels he can wait september he is ok however he does feel one more banding should be sufficient for full treatment. Relayed this to pt who states he will schedule in two weeks prior to leaving.
--- NOTE | 2025-04-13 14:59 | SUR.PHASEII ---
Pt has order for oxycodone 5mg however he stated he and Dr Hernandez discussed a 10mg dose; called Dr Hernandez who gave VO to add 5mg oxycodone to existing order. Administered to pt.
== END 2025-04-13 15:00 | disposition home or self-care (01) ==
PROVIDERS: Family Provider Family Medicine; PCP Physician Assistant Medical; Referring Provider Internal Medicine Gastroenterology; Visit Provider Internal Medicine Gastroenterology
PROC: 0DJ08ZZ Inspection of Upper Intestinal Tract, Via Natural or Artificial Opening Endoscopic (ICD-10-PCS; CPT 43235; principal; 2025-04-13 13:30)
DX: I85.00 Esophageal varices without bleeding (principal)
CPT/HCPCS: 43235; J2704

== ENCOUNTER 2025-04-27 10:43 | Day surgery (SDC) | payer MEDICARE, OTHER, SELFPAY ==
[2025-04-27] MEDS: LACTATED RINGERS 1,000 ML 42 ML IV (13:18)
--- NOTE | 2025-04-27 13:21 | PM.HP.IH.1 ---
History of Present Illness History of Present Illness Date Patient Seen: 04/27/25 Chief complaint: Esophagogastroduodenoscopy Narrative: History of cirrhosis with substantial varices on a variceal ablation program. Need for follow-up. [facility] Medical History (Updated 01/06/25 @ 09:39 by Shanel Guzman PA-C) Hepatitis C virus infection resolved after antiviral drug therapy Colon cancer screening Substance abuse Depression Anxiety Malaria (~2005) Unspecified viral hepatitis C without hepatic coma Surgical History Anesthesia History of carpal tunnel surgery (~2015) [place] teeth removed History of ear surgery (~1957) Undescended testicle (~1959) Other postprocedural status Family History Father Fall Mother Myeloid leukemia Brother Accidental overdose Grandfather Suicide Social History marital status: household members: spouse lives independently: Yes occupational status: previously employed alcohol intake: former substance use type: former substance user and IV drugs (As a young man, not currently) Meds Home Medications and Allergies Home Medications ?Medication ?Instructions ?Recorded ?Confirmed ?Type omega-3 fatty acids-vitamin E 1 cap PO DAILY 02/05/23 04/13/25 History 1,000 mg capsule carvedilol 6.25 mg tablet 6.25 mg PO ONCE 11/04/24 04/27/25 History atorvastatin 10 mg tablet 10 mg PO DAILY #180 tabs 04/25/25 04/27/25 Rx pantoprazole 40 mg tablet,delayed 40 mg PO DAILY #90 tabs 04/25/25 04/27/25 Rx release Allergies Allergy/AdvReac Type Severity Reaction Status Date / Time No Known Drug Allergies Allergy Verified 04/27/25 13:22 Exam Narrative Exam Narrative: Oropharynx free of lesions Chest clear to auscultation percussion Cardiac exam reveals no S3 or murmur Assessment & Plan Assessment & Plan narrative: Large esophageal varices finally responding to variceal ablation program need for follow-up EGD and possible ablation. Risks, benefits, alternatives have been explained. Time-Based Coding :: [TOTAL MINUTES] spent with patient and on the chart (including review of chart, obtaining history, exam, reviewing outside data, placing orders, documenting exam and treatment plan, and counseling patient) on [DATE]. 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
--- NOTE | 2025-04-27 13:23 | PM.OP.ENDO ---
Operative Date/Time/Diagnoses Date of procedure: 04/27/25 Time of procedure: 14:41 Pre-op diagnosis: See indication and findings Post-op diagnosis: same Procedure & Clinicians Study performed: EGD and possible banding Same procedure(s) as scheduled: No Indications: History of esophageal varices on a banding program. Need for follow-up EGD to assess banding and see whether further banding as necessary. Surgeon: Ivan Hernandez Anesthesia Type: Retrobulbar block Procedure Notes Procedure in detail: After informed consent was obtained the patient was placed in left lateral decubitus position. The video upper scope was placed into the oropharynx and with the patient's help swallowed into the esophagus. The esophagus stomach and duodenal were carefully examined. The scope was removed. The patient tolerated procedure well. Blood loss none Complications none Sedation mac Findings 1. Esophagus with ablated varices in the upper half to 2/3. The area from 36-38 had rather large but not deep healing banding ulcers. Below that to 42 cm there were 2 small to medium size varices. The banding kit was placed and both of these were treated. Total bands placed to. 2. Gastropathy or portal hypertension Three normal duodenal bulb and sweep I feel comfortable having Mr. Hoff travel at this point without having further banding events since he is so much better at this time. He should come back immediately in the spring or obvious symptoms.
[2025-04-27 13:25] VITALS: BP 167/87; PULSE 62; RESP 16; TEMP 36.4; O2SAT 99
[2025-04-27 14:45] VITALS: BP 126/58; PULSE 67; RESP 12; TEMP 36.4; O2SAT 94
--- NOTE | 2025-04-27 14:45 | SUR.OPER ---
TWO BANDS USED
[2025-04-27 14:58] VITALS: BP 133/64; PULSE 65; RESP 14; TEMP 36.4; O2SAT 97
[2025-04-27 15:15] VITALS: BP 131/66; PULSE 71; RESP 14; O2SAT 98
== END 2025-04-27 15:19 | disposition home or self-care (01) ==
PROVIDERS: Family Provider Family Medicine; PCP Physician Assistant Medical; Referring Provider Physician Assistant Medical; Visit Provider Internal Medicine Gastroenterology
PROC: 0DJ08ZZ Inspection of Upper Intestinal Tract, Via Natural or Artificial Opening Endoscopic (ICD-10-PCS; CPT 43244; principal; 2025-04-27 13:15)
DX: I85.00 Esophageal varices without bleeding (principal)
CPT/HCPCS: 43244; J2704; J7120